=== PATIENT | female | born 1990 | race Caucasian/White ===

== ENCOUNTER 2024-09-19 09:39 | Inpatient (IN) ==
[2024-09-19] MEDS ORDERED: OXYTOCIN 30 UNITS/NSS 30 UNITS/500 ML BAG IV PRN ×2 (10:09)
[2024-09-19] MEDS ORDERED: LIDOCAINE 1% LOCAL 20 ML VIAL INFIL PRN (10:09)
[2024-09-19] MEDS ORDERED: PENICILLIN GK 6 MU in DEXTROSE 5% 250 ML IV STA (10:09)
[2024-09-19] MEDS ORDERED: LACTATED RINGER'S 1,000 ML IV PRN (10:09)
--- NOTE | 2024-09-19 10:12 | Labor Progress Brief Note ---
Date of Service September 19, 2024 Subjective 34yo at 39w6d, seen in office today and found to be in labor with contractions Q2m and painful. SROM occurred between office visit and arrival on L&D. Preg c/b hypothyroid, GBS pos. Assessment & Plan (1) Group B streptococcal infection during : Plan: PCN (2) Normal labor: Plan: Admit, epidural on request, pit augmentation prn but not needed at this time. Admission and Anticipated Discharge Date Admission Date: September 19, 2024 Physical Exam Genitourinary: 4/100/-2 Clear fluid leakage present FHT Cat 1 [place] Q2m Results & Data Vital Signs (Past 12 Hours) Vital Signs Temp Pulse Resp BP 09/19/24 09:53 94 H 128/68 09/19/24 09:53 99.1 F 18 Coding Level of Care Code None Diagnoses Group B streptococcal infection during O98.819; B95.1 Normal labor O80; Z37.9
[2024-09-19] MEDS: LACTATED RINGER'S 1,000 ML IV SCH (11:10)
[2024-09-19 11:33] LABS: Hematocrit (blood only) 37.7 % (37.0-47.0); Hemoglobin 13.9 g/dl (12.0-16.0); Mean Corpuscular Hemoglobin 34.6 pg (25.0-34.0); Mean Corpuscular Volume 93.8 fL (80.0-100.0); Platelet Count 189 K/uL (130-400); RDW Standard Deviation 40.9 fL (36.4-46.3); Red Blood Count 4.02 M/uL (4.20-5.40); White Blood Count 13.14 K/ul (4.8-10.8)
[2024-09-19] MEDS ORDERED: OXYTOCIN 10 UNITS/ML VIAL ONE (11:40)
[2024-09-19] MEDS ORDERED: SUCCINYLCHOLINE 100MG/5ML SYR IV ONE (11:40)
[2024-09-19] MEDS ORDERED: PHENYLEPHRINE 100MCG/ML 5ML SYR ONE (11:40)
[2024-09-19] MEDS ORDERED: PROPOFOL IV EMULSION 10 MG/ML 20 ML VIAL IV ONE (11:40)
[2024-09-19] MEDS ORDERED: KETOROLAC 30 MG/ML VIAL ONE (11:42)
[2024-09-19 11:51] LABS: Base Excess Cord Arterial Bld -13.5 mEq/L (-9-1.8); CO2 Cord Arterial Blood 74 mmHg (39.1-73.5); HCO3 Cord Arterial Blood 19 mmol/L (19.7-28.5); Oxygen Sat Cord Arterial Blood < 60.0 % (<60); PO2 Cord Arterial Blood < 20 mmHg (4.1-31.7); pH Cord Arterial Blood 7.02 (7.1-7.38)
[2024-09-19] MEDS ORDERED: HYDROmorphone INJ 2 MG/ML SYR/VIAL ONE (11:53)
--- NOTE | 2024-09-19 12:08 | XRay Report ---
KUB HISTORY: stat section no OR count done prior to start COMPARISON STUDY: None FINDINGS: Nasogastric tube tip is either in the distal stomach or proximal duodenum. Monitor wires ov erlie the upper abdomen. Otherwise no radiopaque foreign body seen. There is moderate retained stool. No bowel infarction seen. There is expected small amount of free air. IMPRESSION: No retained foreign body seen. ACT 112: Negative or not required by law. The above report was generated using voice recognition software. It may contain grammatical, syntax o r spelling errors. Electronically signed by: John Kendall M.D. 09/19/2024 12:07 PM
[2024-09-19] MEDS ORDERED: CALCIUM CARBONATE 500 MG CHEWABLE TAB PO PRN (12:12)
[2024-09-19] MEDS ORDERED: ONDANSETRON INJ 2 MG/ML 2 ML VIAL IV PRN (12:12)
[2024-09-19] MEDS ORDERED: HYDROCORTISONE ACETATE 25 MG SUPP PR PRN (12:12)
[2024-09-19] MEDS ORDERED: HYDROmorphone INJ 0.5 MG/0.5 ML SYR IV PRN (12:12)
[2024-09-19] MEDS ORDERED: BENZOCAINE 20% SPRY 85 APPLN/85 GM CAN EXT PRN (12:12)
[2024-09-19] MEDS ORDERED: SENNA 8.6 MG TAB PO PRN (12:12)
[2024-09-19] MEDS ORDERED: PROMETHAZINE 12.5 MG/50.5 ML BAG IV PRN (12:12)
[2024-09-19] MEDS ORDERED: diphenhydrAMINE Capsule 25 MG CAP PO PRN (12:12)
[2024-09-19] MEDS ORDERED: NALOXONE HCL 0.4 MG/1 ML VIAL/CARP IV PRN (12:12)
[2024-09-19] MEDS ORDERED: MAGNESIUM HYDROXIDE SUSP 30 ML UDC PO PRN (12:12)
[2024-09-19] MEDS ORDERED: diphenhydrAMINE 50 MG/ML VIAL IV PRN (12:12)
[2024-09-19] MEDS ORDERED: SODIUM CHLORIDE 0.9% 1,000 ML IV SCH (12:15)
[2024-09-19] MEDS ORDERED: HYDROmorphone INJ 2 MG/ML SYR/VIAL IV PRN (12:20)
[2024-09-19] MEDS ORDERED: ATROPINE SULFATE 0.1 MG/ML 10ML SYR IV PRN (12:20)
[2024-09-19] MEDS ORDERED: ACETAMINOPHEN 1,000 MG/100 ML VIAL IV PRN (12:20)
--- NOTE | 2024-09-19 12:21 | Operative Report ---
PG Post Operative Report Pre & Post Diagnosis Operation Date: 09/19/24 11:30 Pre-Op Diagnosis: Martins intrauterine Labor NRFHT Post-Op Diagnosis: Placental abruption I identified the patient and participated in the time-out.: Yes Procedure Operation Date: 09/19/24 11:30 Primary STAT low transverse section with two layer closure Surgeon Lina Hansen MD Test Department Helper Gloria Macario RN Estimated Blood Loss 500 Findings Consistent with Post-Op Diagnosis Specimens Placenta, cord blood, cord gases Anesthesia Type General Complications none Disposition Accompanied Patient To Recovery: Yes Disposition: L&D Description of Procedure Patient was off monitor to use the bathroom shortly before . Before going off monitor, FHT had generally been Cat 1. Once patient returned to bed from the bathroom, FHT were noted to be decreased. I was called and came from call room directly to [id number]. Patient was examined and 6cm/100, making very quick cervical change, and no cord or obvious cause of the decel was identified. Scalp electrode and Pulse Ox were placed and confirmed prolonged deceleration. Patient was counseled on the need for emergent section and the risks and benefits were reviewed including specifically pain, bleeding, injury to mom and/or baby, and impact on future pregnancies. She quickly checked with FOB/Asphalt Distributor Tender who were at the bedside for their thoughts, heard their support for proceeding, then verbally consented to proceed. She was moved promptly to the L&D OR and prepped with betadine, while GETA was established by Dr. Recinos. A time out was held confirming correct patient, procedure, position and pre-op antibiotics. PCN had been given already for GBS, and Ancef/Azithro were obtained once time allowed later during the surgery. Once Dr. Recinos had secured the ETT and given permission for us to proceed, began. A Pfannenstiel skin incision was made with a knife and taken down to the underlying layer of fascia. The fascia was incised in the midline with the knife and taken out laterally with blunt pressure. The fascia was bluntly dissected off the underlying rectus both superiorly and inferiorly. The muscles were bluntly in the midline. The peritoneum was entered bluntly. The incision was then stretched. The bladder retractor was placed. A hysterotomy incision was created transversely in the lower uterine segment, final entry being accomplished in a blunt manner with the bulk sealer operator's fingers. Bloody amniotic fluid was encountered, which was a notable change, as fluid had been clear at the time the patient was admitted. The bulk sealer operator's hand was used to elevate the head to the hysterotomy. The head was delivered using mild fundal pressure, and the shoulders and body followed without difficulty. The cord was clamped and cut and the was then handed off to the awaiting financial agent. Cord blood was obtained. A segment of cord was isolated for gases. The placenta was Manually extracted and was found to be only minimally attached. The uterus was exteriorized and cleared of all clot and debris with moistened laparotomy sponges. The hysterotomy incision was repaired in two layers, the first in a running locked layer, the second in an imbricating layer. The ovaries and tubes were seen to be normal bilaterally. The uterus was gently replaced in the abdomen, and the gutters were cleared of clot and debris. A final inspection of the hysterotomy revealed good hemostasis. The rectus muscles were allowed to reapproximate naturally. The fascia was then reapproximated with 1 Vicryl in a running nonlocked manner. The fascia was examined and found to be free of defect following closure. The subcutaneous tissue was copiously irrigated and reapproximated with 0-chromic, then the skin edges were closed with 4-0 monocryl in a subcuticular fashion. A dermabond dressing was applied. The shepard was found to be draining clear yellow urine at completion of the procedure. I attest to the content of the Intraoperative Record and any orders documented therein. Any exceptions are noted below. I attest to the content of the Intraoperative Record and any orders documented therein. Any exceptions are noted below. OB Procedure Charges 98098
[2024-09-19] MEDS ORDERED: Patient's HEIGHT &/or WEIGHT Needed SCH (12:25)
[2024-09-19] MEDS: ACETAMINOPHEN 1000 MG/100 ML IV IV ONE (12:30)
[2024-09-19] MEDS ORDERED: PENICILLIN GK 3 MU in DEXTROSE 5% 100 ML IV PRN (13:09)
--- NOTE | 2024-09-19 13:35 | Anesthesiology Consultation ---
Date of Service September 19, 2024 Assessment & Plan Chart Review Chart Review: Patient NOT seen in Pre Admission Testing Consults Requested none emergent procedure History Surgery Operation Date: 09/19/24 11:30 Proposed Procedures p Section in LD - Lina Hansen MD Height/Weight Height: 5 ft 2 in Weight: 67.404 kg Allergies Allergy/AdvReac Type Severity Reaction Status Date / Time cat dander Allergy Unknown Verified 09/19/24 08:38 dog dander Allergy Unknown Verified 09/19/24 08:38 dust Allergy Unknown Uncoded 09/19/24 08:38 dust mite extract Allergy Unknown Uncoded 09/19/24 08:38 pollen Allergy Unknown Uncoded 09/19/24 08:38 tree extra Allergy Unknown Uncoded 09/19/24 08:38 Medications Home Medications Medication Instructions Recorded Confirmed Last Taken breast pump #1 ea 07/12/24 09/19/24 Unknown levothyroxine 25 mcg tablet 50 mcg (2 x 25 mcg) PO DAILY #180 09/18/24 09/19/24 09/18/24 tabs Past Medical History Medical History Prior miscarriage with in first trimester, antepartum Subclinical hypothyroidism Hypothyroidism Generalized anxiety disorder Iron deficiency anemia Atopic dermatitis Xerosis of skin Rosacea Seborrheic dermatitis Acquired hypothyroidism Past Family History Family History Mother No problems noted. Father Dyslipidemia Grandmother (Paternal) Hypothyroidism Grandfather (Maternal) Dyslipidemia Hypertension Myocardial infarction Grandmother (Maternal) Dyslipidemia Hypertension Kidney disease Grandfather (Paternal) Diabetes Dyslipidemia Heart disease Denies family history of Ovarian cancer Breast cancer Colorectal cancer Past Surgical History Surgical History S/P wisdom tooth extraction Hx of hernia repair Social History Smoking Status: Never smoker Do You Dip or Chew Tobacco: No Hx Alcohol Use: No Hx Substance Use: No Physical Exam Vital Signs Last Vital Signs Temp 99.1 F 09/19/24 09:53 Pulse 78 09/19/24 13:30 Resp 18 09/19/24 09:53 BP 114/64 09/19/24 13:30 Pulse Ox 100 09/19/24 13:30 Testing Laboratory Results 09/19/24 11:18
[2024-09-19] MEDS: HYDROmorphone PCA 30 MG/30 ML IV PRN (13:36)
--- NOTE | 2024-09-19 13:43 | Anesthesiology Progress Note ---
Date of Service September 19, 2024 Anesthesia Post Procedure Vital Signs Vital Signs: Temp Pulse Resp BP Pulse Ox 09/19/24 13:40 72 110/63 100 09/19/24 13:35 76 100 09/19/24 13:30 78 114/64 100 09/19/24 13:25 76 100 09/19/24 13:20 65 108/56 L 98 09/19/24 13:15 78 99 09/19/24 13:10 76 110/59 L 99 09/19/24 13:05 79 100 09/19/24 13:00 86 09/19/24 13:00 81 116/61 98 09/19/24 12:55 81 99 09/19/24 12:50 84 118/68 99 09/19/24 12:45 75 99 09/19/24 12:40 78 119/56 L 99 09/19/24 12:35 94 H 100 09/19/24 12:30 96 H 123/58 L 09/19/24 12:29 95 H 99 09/19/24 12:25 100 H 98 09/19/24 12:20 95 H 128/57 L 100 09/19/24 12:15 96 H 99 09/19/24 12:10 106 H 108/51 L 87 L 09/19/24 12:09 165 H 89 L 09/19/24 11:14 93 H 99 09/19/24 09:53 94 H 128/68 09/19/24 09:53 99.1 F 18 Transfer of Care Handoff Completed per policy Notes Mental Status: alert / awake / arousable and participated in evaluation Patient Amnestic to Procedure: Yes Nausea / Vomiting: adequately controlled Pain: adequately controlled Airway Patency, RR, SpO2: stable & adequate BP & HR: stable & adequate Hydration State: stable & adequate Anesthetic Complications: no major complications apparent and Pt Satisfied with anesthetic care
[2024-09-19] MEDS: SIMETHICONE 80 MG CHEW PO SCH (16:34)
[2024-09-19] MEDS: LACTATED RINGER'S 500 ML IV ONE (16:35)
[2024-09-19] MEDS: KETOROLAC 30 MG/ML VIAL IV SCH (16:59)
[2024-09-19] MEDS: ACETAMINOPHEN 325 MG TAB PO SCH (18:31)
[2024-09-19] MEDS: DOCUSATE SODIUM 100 MG CAP PO SCH (21:02)
[2024-09-20] MEDS: LEVOTHYROXINE SODIUM 50 MCG TABLET PO SCH (06:49)
--- NOTE | 2024-09-20 07:03 | Obstetrical Progress Note ---
Date of Service September 20, 2024 Assessment & Plan (1) state: POD#1 STAT/GETA for abruption at term. Doing well; [employer] and shepard discontinued at 0600 today, to begin ambulation/TOV/shower/etc today. successfully. Subjective Ambulation: limited ambulation (bedrest --> to dangle this AM) Voiding: shepard catheter in place (Shepard removed at 0600 but no void yet) Passing Gas:: Yes Diet Tolerance:: regular diet Lochia:: Small Feeding Type:: breast feeding Physical Exam Constitutional WD/WN, vitals as above Eyes PERRL, conjunctivae normal, anicteric sclerae Neck normal visual inspection Respiratory normal respiratory effort and able to speak in complete sentences; no respiratory distress and no labored breathing Cardiovascular Rate/Rhythm: regular rate and regular rhythm Extremities: no edema Chest (Breasts) Chest: normal inspection of chest Gastrointestinal (Abdomen) Inspection/Auscultation: abdomen normal to inspection Soft, postgravid Incision c/d/i Psychiatric A+Ox3, euthymic affect Genitourinary OB Exam Abdomen: + fundal height Fundus: + firm and + relation to umbilicus (fundus just below umbilicus); not tender Results & Data Vital Signs (Past 12 Hours) Vital Signs Temp Pulse Resp BP Pulse Ox O2 Del Method 09/20/24 03:55 98.4 F 94 H 16 123/72 99 Room Air 09/19/24 23:30 97.9 F 71 20 101/57 L 100 Room Air 09/19/24 19:10 98.1 F 73 20 115/67 100 Room Air
[2024-09-20 07:17] LABS: Hematocrit (blood only) 28.5 % (37.0-47.0); Hemoglobin 10.2 g/dl (12.0-16.0); Immature Granulocytes # (auto) 0.06 K/uL (0.01-0.20); Immature Granulocytes % (auto) 0.4 %; Mean Corpuscular Hemoglobin 34.5 pg (25.0-34.0); Mean Corpuscular Volume 96.3 fL (80.0-100.0); Platelet Count 151 K/uL (130-400); RDW Standard Deviation 41.9 fL (36.4-46.3); Red Blood Count 2.96 M/uL (4.20-5.40); White Blood Count 15.92 K/ul (4.8-10.8)
[2024-09-20] MEDS: DIPHTHER/TETAN/PERTUS Vaccine (Tdap, Adol/Adult) 0.5mL IM ONE (07:31)
[2024-09-20] MEDS: FERROUS SULFATE 325 MG TAB PO SCH (08:06)
[2024-09-20] MEDS: PRENATAL VITAMIN 1 TAB PO SCH (08:06)
[2024-09-20] MEDS: IBUPROFEN 600 MG TAB PO SCH (11:24)
[2024-09-20] MEDS ORDERED: KETOROLAC 30 MG/ML VIAL IV PRN (11:45)
[2024-09-21 07:13] VITALS: BP 128/83; PULSE 60; RESP 18; TEMP 97.5; O2SAT 97
--- NOTE | 2024-09-21 07:23 | Obstetrical Progress Note ---
Date of Service September 21, 2024 Assessment & Plan (1) state: Plan Doing well overall , routine care. Day #:: 2 Subjective Ambulation: ambulating normally Voiding: no voiding problems Passing Gas:: Yes Diet Tolerance:: regular diet Lochia:: Small Feeding Type:: breast feeding sore, pain helped with meds Physical Exam Constitutional WD/WN, vitals as above Respiratory normal respiratory effort, lungs clear to auscultation Cardiovascular RRR, no murmur, no edema Extremities: no calf tenderness and no edema Gastrointestinal (Abdomen) soft, appro tender, nd, incision c/d/i ff/appro tender at u. Psychiatric A+Ox3, euthymic affect Results & Data Vital Signs (Past 12 Hours) Vital Signs Temp Pulse Resp BP Pulse Ox O2 Del Method 09/21/24 07:13 36.4 C L 60 18 128/83 97 Room Air 09/21/24 04:00 36.7 C 76 16 110/74 99 Room Air 09/21/24 00:55 36.6 C 78 20 102/67 95 Room Air
[2024-09-21 07:24] LABS: Hematocrit (blood only) 31.2 % (37.0-47.0); Hemoglobin 10.5 g/dl (12.0-16.0)
[2024-09-21] MEDS: IBUPROFEN 600 MG TAB PO PRN (11:59)
[2024-09-21] MEDS ORDERED: ACETAMINOPHEN 325 MG TAB PO PRN (18:08)
--- NOTE | 2024-09-23 14:05 | Discharge Summary ---
Date of Service September 23, 2024 Admission Exam (Per Admitting) Constitutional WD/WN, vitals as above Eyes PERRL, conjunctivae normal, anicteric sclerae Neck normal visual inspection Respiratory normal respiratory effort and able to speak in complete sentences; no respiratory distress and no labored breathing Cardiovascular Rate/Rhythm: regular rate and regular rhythm Extremities: no edema Chest (Breasts) Chest: normal inspection of chest Gastrointestinal (Abdomen) Inspection/Auscultation: abdomen normal to inspection Psychiatric A+Ox3, euthymic affect Genitourinary OB Exam Abdomen: + fundal height Discharge Data Consultations 09/19/24 10:09 Consult Anesthesiology Stat Procedures Performed Operation Date: 09/19/24 11:30 Actual Procedures p Section in LD for living female child at 1127(Bilateral) - Lina Hansen MD Hospital Course (1) state: STAT cesearean section for abruption occurring acutely during labor. Mom and ba by doing well at time of discharge with standard postop care and pain medication. Plan Doing well overall , routine care. Coding Level of Care Code 70732 IN/OBS DISCH 30 MIN/LESS Diagnoses state Z39.2
== END 2024-09-21 14:15 | disposition home or self-care (01) | DRG 788 ==
LOC: 4S1 09:39 → 4E2 15:20
DX: O99.283 Endocrine, nutritional and metabolic diseases complicating pregnancy, third trimester; B95.1 Streptococcus, group B, as the cause of diseases classified elsewhere; E03.9 Hypothyroidism, unspecified; O76 Abnormality in fetal heart rate and rhythm complicating labor and delivery; Z3A.39 39 weeks gestation of pregnancy; Z37.0 Single live birth; O42.02 Full-term premature rupture of membranes, onset of labor within 24 hours of rupture; O98.82 Other maternal infectious and parasitic diseases complicating childbirth